=== PATIENT | female | born 1995 | race Caucasian/White ===

== ENCOUNTER 2018-08-24 09:55 | Outpatient (CLI) | payer BC ==
--- NOTE | 2018-08-24 12:32 | RAD ---
FIVE VIEWS CERVICAL SPINE INCLUDING FLEXION AND EXTENSION VIEWS: DATE: 08/24/2018. FINDINGS: Spondylosis cervical region. FINDINGS: C1 to the cervicothoracic junction is seen on the lateral view. The vertebral body heights and inter vertebral disk spaces are within normal limits. No fracture or subluxation is seen. The prevertebra l soft tissues are within normal limits. IMPRESSION: Normal views cervical spine without evidence of a fracture or subluxation. POS: [facility]
== END 2018-08-24 09:56 | disposition home or self-care (01) ==
LOC: RAD 09:55
PROVIDERS: ATTEND Specialist
DX: M47.22 Other spondylosis with radiculopathy, cervical region (principal)
CPT/HCPCS: 72050